=== PATIENT | male | born 1945 ===

== ENCOUNTER 2017-12-19 13:02 | Inpatient (IN) | payer MEDICARE ==
[2017-12-19 13:02] VITALS: PULSE 111
[2017-12-19 14:07] LABS: BASO % 0.8 % (0.0-2.0); EOS # 0.2 K/uL (0.0-0.7); EOS % 3.7 % (0.0-4.0); HEMOGLOBIN 13.2 g/dL (12.0-18.0); LYMPH # 1.8 K/uL (1.0-4.3); LYMPH % 36.1 % (20.0-40.0); MEAN CELL VOLUME 80.6 fl (80.0-94.0); MEAN CORPUSCULAR HEMOGLOBIN 27.9 pg (27.0-31.0); MEAN CORPUSCULAR HGB CONC 34.6 g/dL (33.0-37.0); MEAN PLATELET VOLUME 9.1 fl (7.2-11.7); MONO # 0.3 K/uL (0.0-0.8); MONO % 6.3 % (0.0-10.0); NEUT # 2.7 K/uL (1.8-7.0); NEUT % 53.1 % (50.0-75.0); NRBC % 0.1 % (0.0-0.0); RBC 4.73 Mil/uL (4.40-5.90); RED CELL DISTRIBUTION WIDTH 14.4 % (11.5-14.5); WHITE BLOOD COUNT 5.1 K/uL (4.8-10.8)
[2017-12-19 14:14] LABS: BLOOD UREA NITROGEN 24 mg/dl (9-20); GFR AFRICAN-AMERICAN > 60; GFR NON-AFRICAN AMERICAN > 60
--- NOTE | 2017-12-19 14:14 | ED PDOC ---
HPI: Chest Pain Time Seen by Provider: 12/19/17 13:11 Chief Complaint (Nursing): Chest Pain History Per: Patient History/Exam Limitations: no limitations Onset/Duration Of Symptoms: Days (4), Worse Since (this morning) Current Symptoms Are (Timing): Still Present Modifying Factors: None Exacerbating Factors: None Alleviating Factors: None Additional Complaint(s): Rickey Zamudio is a 72 year old male, whose past medical history includes HTN, diabetes, CAD, CVA, DVT, and HLD, who presents to the emergency department complaining of constant non-radiating chest pain since 4 days ago. Patient reports she usually takes Aspirin, but has stopped in the last 3 days. Patient denies shortness of breath, headache, fever, chills cough, nausea, vomiting, diarrhea, diaphoresis, jaw pain, back pain, lower extremity pain/swelling, or other complaints. Past Medical History Reviewed: Historical Data, Nursing Documentation, Vital Signs Vital Signs: Last Vital Signs Temp 97.9 F 12/19/17 13:05 Pulse 108 H 12/19/17 18:09 Resp 16 12/19/17 17:51 BP 128/59 L 12/19/17 17:51 Pulse Ox 98 12/19/17 18:09 - Medical History PMH: CAD, Diabetes, Deep Vein Thrombosis, HTN, Hypercholesterolemia, Hyperlipidemia Denies: HIV, Chronic Kidney Disease - Surgical History Surgical History: Cholecystectomy Other surgeries: IVC filter - Family History Family History: States: Unknown Family Hx - Home Medications Home Medications: Ambulatory Orders Medication Instructions Recorded Carvedilol [Coreg] 12.5 mg PO BID 12/19/17 Gemfibrozil [Lopid] 600 mg PO HS 12/19/17 Insulin Glargine,Hum.rec.anlog 40 units SC HS 12/19/17 [Toujeo Solostar] Losartan/Hydrochlorothiazide 1 tab PO DAILY 12/19/17 [Losartan-Hctz 100-25 mg Tab] Simvastatin [Zocor] 20 mg PO DAILY 12/19/17 amLODIPine [Norvasc] 5 mg PO DAILY 12/19/17 metFORMIN [glucOPHAGE] 2 tab PO BID 12/19/17 - Allergies Allergies/Adverse Reactions: Allergies Allergy/AdvReac Type Severity Reaction Status Date / Time No Known Allergies Allergy Verified 11/29/16 21:09 TORRES Risk Score for UA/NSTEMI - TORRES Risk Score Age > 64: YES 3 or more CAD Risk Factors: YES Known CAD (Stenosis greater than 50%): YES Aspirin use in past 7 days: NO Severe Angina: YES EKG ST changes greater than 0.5mm: NO Positive Cardiac Marker: NO TORRES Score: 4 Risk %: 20% Wells Criteria for PE - Wells Criteria for Pulmonary Embolism Clinical Signs and Symptoms of DVT: No P.E is #1 Diagnosis, or Equally Likely: No Heart Rate >100: No Immobilization at least 3 days;Surgery previous 4 weeks: No Previous, objectively diagnosed PE or DVT: No Hemoptysis: No Malignancy w/treatment within 6 months, or palliative: No Total Score: 0 Review of Systems ROS Statement: Except As Marked, All Systems Reviewed And Found Negative Constitutional: Negative for: Fever ENT: Negative for: Throat Swelling Cardiovascular: Positive for: Chest Pain Respiratory: Negative for: Cough, Shortness of Breath Gastrointestinal: Negative for: Vomiting, Abdominal Pain Genitourinary Male: Negative for: Dysuria Musculoskeletal: Negative for: Neck Pain Skin: Negative for: Rash Neurological: Negative for: Headache Physical Exam - Reviewed Nursing Documentation Reviewed: Yes Vital Signs Reviewed: Yes - Physical Exam Appears: Positive for: Non-toxic, No Acute Distress Head Exam: Positive for: ATRAUMATIC, NORMAL INSPECTION, NORMOCEPHALIC Skin: Positive for: Normal Color, Warm, DRY Eye Exam: Positive for: EOMI, Normal appearance, PERRL Neck: Positive for: Normal, Painless ROM, Supple Cardiovascular/Chest: Positive for: Regular Rate, Rhythm. Negative for: Chest Non Tender (left sided chest tenderness), Murmur Respiratory: Positive for: Normal Breath Sounds. Negative for: Crackles, Rales , Rhonchi, Wheezing Gastrointestinal/Abdominal: Positive for: Normal Exam, Bowel Sounds, Soft. Negative for: Tenderness Neurologic/Psych: Positive for: Alert, comfort station attendant II-XII (intact), Oriented. Negative for: Motor/Sensory Deficits - Laboratory Results Result Diagrams: 12/19/17 13:58 12/19/17 13:58 - ECG ECG: Positive for: Interpreted By Me, Viewed By Me ECG Rhythm: Positive for: Normal QRS, Normal ST Segment, Sinus Tachycardia. Negative for: ST/T Changes Rate: 108 O2 Sat by Pulse Oximetry: 98 (room air) Pulse Ox Interpretation: Normal - Radiology X-Ray: Interpreted by Me, Viewed By Me X-Ray Interpretation: No Acute Disease Medical Decision Making Medical Decision Making: Impression: 72 y/o male with left sided chest wall tenderness c/o chest pain since 4 days Differential Diagnosis included but are not limited to: ACS vs. pulmonary embolism vs. musculoskeletal vs. arthritis Plan: -- EKG -- CXR -- Labs -- Nitroglycerin and Aspirin -- Reassess and disposition Progress Notes: PROCEDURE: CT Angiography Chest, Abdomen and Pelvis with and without intravenous contrast HISTORY: left chest pain COMPARISON: Abdomen pelvis CT without contrast 09/26/2012. TECHNIQUE: Contiguous axial images of the chest, abdomen and pelvis were obtained in the phase of aortic enhancement. A noncontrast enhanced CT of the chest was also obtained to evaluate for possible intramural thrombus. Coronal and sagittal reformats were generated. IV dose administered: Visipaque 320, 90 cc. Radiation dose: Total exam DLP = 1534.48 mGy-cm. This CT exam was performed using one or more of the following dose reduction techniques: Automated exposure control, adjustment of the mA and/or kV according to patient size, and/or use of iterative reconstruction technique. FINDINGS: CT ANGIOGRAPHY OF THE CHEST WITH & WITHOUT CONTRAST: AORTA (CHEST AND ABDOMEN): The thoracic and abdominal aorta are are remarkable for atherosclerosis but without aneurysm, dissection or rupture. No intramural thrombus identified in the thoracic aorta on the non-contrast CT of the chest. The celiac axis, superior mesenteric artery, inferior mesenteric artery and the renal arteries are widely patent. The pelvic arteries are atherosclerotic but patent and otherwise unremarkable. LUNGS: No nodule, mass or consolidation. Central airways appear clear MEDIASTINUM: Extensive coronary artery atherosclerosis is appreciated with normal size heart. There is no significant lymphadenopathy. LYMPH NODES: As above. PLEURA: Unremarkable. No pneumothorax. No pleural fluid. BONES: Unremarkable. OTHER FINDINGS: None. CT ANGIOGRAPHY OF THE ABDOMEN AND PELVIS WITH CONTRAST: Evaluation of the abdomen visualize pelvic anatomy is compromised by the lack of arterial venous phase enhancement imaging and also lack of oral contrast and evaluation of the gastrointestinal tract. LIVER: Unremarkable. No gross lesion or ductal dilatation. GALLBLADDER AND BILE DUCTS: Interval cholecystectomy evident. PANCREAS: Unremarkable. No gross lesion or ductal dilatation. SPLEEN: Unremarkable. ADRENALS: Unremarkable. No mass. KIDNEYS AND URETERS: Unremarkable. No hydronephrosis. No solid mass. VASCULATURE: Unremarkable. No aortic aneurysm. STOMACH AND BOWEL: The stomach is mildly distended with retained food and air. Retained fecal material appears relatively prominent throughout the colon without obvious constipation type pattern. . No obstruction. No gross mural thickening. APPENDIX: Normal appendix. PERITONEUM: Unremarkable. No free fluid. No free air. LYMPH NODES: Unremarkable. No enlarged lymph nodes. BLADDER: Upper bladder is unremarkable. The exam terminates at the mid pelvis. REPRODUCTIVE: Not visualized. BONES: Unremarkable as imaged. OTHER FINDINGS: None. IMPRESSION: No evidence aortic dissection or aneurysm. No definite acute chest abdomen findings as well as the upper pelvis. Limited additional details as discussed above including prior cholecystectomy and extensive coronary artery atherosclerosis. Scribe Attestation: Documented by Ana M Hugginsibe Attestation: All medical record entries made by the Scribe were at my direction and personally dictated by me. I have reviewed the chart and agree that the record accurately reflects my personal performance of the history, physical exam, medical decision making, and the department course for this patient. I have also personally directed, reviewed, and agree with the discharge instructions and disposition. Disposition - Clinical Impression Clinical Impression: Chest pain - Patient ED Disposition Is Patient to be Admitted: Yes Discussed With : Dax Mcfarland Doctor Will See Patient In The: Hospital Counseled Patient/Family Regarding: Studies Performed, Diagnosis - Disposition Disposition Time: 16:30 Condition: FAIR - Pt Status Changed To: Hospital Disposition Of: Inpatient - Admit Certification Admit to Inpatient:: After my assessment, the patient will require hospitalization for at least two midnights. This is because of the severity of symptoms shown, intensity of services needed, and/or the medical risk in this patient being treated as an outpatient. - POA Present On Arrival: Poor Glycemic Control
[2017-12-19 14:15] LABS: CALCIUM 9.5 mg/dL (8.4-10.2); LIPASE 373 U/L (23-300)
[2017-12-19 14:23] LABS: INR 0.9 (0.9-1.2); PARTIAL THROMBOPLASTIN TIME 26.3 Seconds (25.6-37.1); PROTHROMBIN TIME 10.2 Seconds (9.8-13.1)
[2017-12-19] MEDS ORDERED: Iodixanol 320 MG/ML 100 ML BOTTLE IV ONE (15:43)
[2017-12-19] MEDS ORDERED: Sodium Chloride 0.9% 100 ML ONE (15:43)
[2017-12-19] MEDS ORDERED: Insulin Regular 100 units/ml IV STA (16:21)
[2017-12-19] MEDS ORDERED: Morphine 4 MG/ML VIAL IVP ONE (16:23)
[2017-12-19] MEDS ORDERED: Insulin Regular 100 units/ml ONE (16:35)
[2017-12-19] MEDS ORDERED: Morphine 4 MG/ML VIAL ONE (16:35)
--- NOTE | 2017-12-19 16:42 | CT ---
PROCEDURE: CT Angiography Chest, Abdomen and Pelvis with and without intravenous contrast HISTORY: left chest pain COMPARISON: Abdomen pelvis CT without contrast 09/26/2012. TECHNIQUE: Contiguous axial images of the chest, abdomen and pelvis were obtained in the phase of aortic enhancement. A noncontrast enhanced CT of the chest was also obtained to evaluate for possible intramural thrombus. Coronal and sagittal reformats were generated. IV dose administered: Visipaque 320, 90 cc. Radiation dose: Total exam DLP = 1534.48 mGy-cm. This CT exam was performed using one or more of the following dose reduction techniques: Automated exposure control, adjustment of the mA and/or kV according to patient size, and/or use of iterative reconstruction technique. FINDINGS: CT ANGIOGRAPHY OF THE CHEST WITH & WITHOUT CONTRAST: AORTA (CHEST AND ABDOMEN): The thoracic and abdominal aorta are are remarkable for atherosclerosis but without aneurysm, dissection or rupture. No intramural thrombus identified in the thoracic aorta on the non-contrast CT of the chest. The celiac axis, superior mesenteric artery, inferior mesenteric artery and the renal arteries are widely patent. The pelvic arteries are atherosclerotic but patent and otherwise unremarkable. LUNGS: No nodule, mass or consolidation. Central airways appear clear MEDIASTINUM: Extensive coronary artery atherosclerosis is appreciated with normal size heart. There is no significant lymphadenopathy. LYMPH NODES: As above. PLEURA: Unremarkable. No pneumothorax. No pleural fluid. BONES: Unremarkable. OTHER FINDINGS: None. CT ANGIOGRAPHY OF THE ABDOMEN AND PELVIS WITH CONTRAST: Evaluation of the abdomen visualize pelvic anatomy is compromised by the lack of arterial venous phase enhancement imaging and also lack of oral contrast and evaluation of the gastrointestinal tract. LIVER: Unremarkable. No gross lesion or ductal dilatation. GALLBLADDER AND BILE DUCTS: Interval cholecystectomy evident. PANCREAS: Unremarkable. No gross lesion or ductal dilatation. SPLEEN: Unremarkable. ADRENALS: Unremarkable. No mass. KIDNEYS AND URETERS: Unremarkable. No hydronephrosis. No solid mass. VASCULATURE: Unremarkable. No aortic aneurysm. STOMACH AND BOWEL: The stomach is mildly distended with retained food and air. Retained fecal material appears relatively prominent throughout the colon without obvious constipation type pattern. . No obstruction. No gross mural thickening. APPENDIX: Normal appendix. PERITONEUM: Unremarkable. No free fluid. No free air. LYMPH NODES: Unremarkable. No enlarged lymph nodes. BLADDER: Upper bladder is unremarkable. The exam terminates at the mid pelvis. REPRODUCTIVE: Not visualized. BONES: Unremarkable as imaged. OTHER FINDINGS: None. IMPRESSION: No evidence aortic dissection or aneurysm. No definite acute chest abdomen findings as well as the upper pelvis. Limited additional details as discussed above including prior cholecystectomy and extensive coronary artery atherosclerosis.
--- NOTE | 2017-12-19 18:02 | RAD ---
PROCEDURE: CHEST RADIOGRAPH, 1 VIEW HISTORY: chest pain COMPARISON: Portable chest 11/29/2016. FINDINGS: LUNGS: No acute cardiopulmonary disease appreciated. PLEURA: No pneumothorax or pleural fluid seen. CARDIOVASCULAR: Normal. OSSEOUS STRUCTURES: No significant abnormalities. VISUALIZED UPPER ABDOMEN: Normal. OTHER FINDINGS: None. IMPRESSION: No interval acute cardiopulmonary disease appreciated.
--- NOTE | 2017-12-19 21:06 | CP.PCM.HP ---
History of Present Illness - History of Present Illness History of Present Illness: CC: Chest Pain History of Present Illness: A 72 year old male, whose past medical history includes HTN, diabetes, CAD, CVA , DVT, and HLD, who presents to the emergency department complaining of constant non-radiating chest pain since 4 days ago. Patient reports he usually takes Aspirin, but has stopped in the last 3 days. Patient denies shortness of breath, headache, fever, chills cough, nausea, vomiting, diarrhea, diaphoresis, jaw pain, back pain, lower extremity pain/swelling, or other complaints. Present on Admission - Present on Admission Any Indicators Present on Admission: No Review of Systems - Review of Systems All systems: reviewed and no additional remarkable complaints except - Cardiovascular Cardiovascular: As Per HPI Past Patient History - Past Medical History & Family History Past Medical History?: Yes Past Family History: Reviewed and not pertinent - Past Social History Smoking Status: Former Smoker Cigar Use: No Alcohol: None Drugs: Denies - CARDIAC Hx Cardiac Disorders: Yes Hx Hypercholesterolemia: Yes Hx Hypertension: Yes - PULMONARY Hx Respiratory Disorders: No - NEUROLOGICAL Hx Neurological Disorder: Yes Hx Transient Ischemic Attacks (TIA): Yes - HEENT Hx HEENT Problems: No - RENAL Hx Chronic Kidney Disease: No - ENDOCRINE/METABOLIC Hx Endocrine Disorders: Yes Hx Diabetes Mellitus Type 2: Yes - HEMATOLOGICAL/ONCOLOGICAL Hx Blood Disorders: No Hx Human Immunodeficiency Virus (HIV): No - INTEGUMENTARY Hx Dermatological Problems: Yes Other/Comment: Discoloration left lower leg - MUSCULOSKELETAL/RHEUMATOLOGICAL Hx Musculoskeletal Disorders: No Hx Falls: No - GASTROINTESTINAL Hx Gastrointestinal Disorders: No - GENITOURINARY/GYNECOLOGICAL Hx Genitourinary Disorders: No - PSYCHIATRIC Hx Psychophysiologic Disorder: No Hx Substance Use: No - SURGICAL HISTORY Hx Surgeries: Yes Hx Cholecystectomy: Yes - ANESTHESIA Hx Anesthesia: Yes Hx Anesthesia Reactions: No Hx Malignant Hyperthermia: No Has any member of the family had a problem w/ anesthesia?: No Meds Allergies/Adverse Reactions: Allergies Allergy/AdvReac Type Severity Reaction Status Date / Time No Known Allergies Allergy Verified 11/29/16 21:09 Physical Exam - Constitutional Appears: Well, No Acute Distress - Head Exam Head Exam: ATRAUMATIC, NORMAL INSPECTION, NORMOCEPHALIC - Eye Exam Eye Exam: EOMI, Normal appearance, PERRL Pupil Exam: NORMAL ACCOMODATION, PERRL - ENT Exam ENT Exam: Mucous Membranes Moist, Normal Exam - Neck Exam Neck exam: Positive for: Normal Inspection - Respiratory Exam Respiratory Exam: Clear to Auscultation Bilateral, NORMAL BREATHING PATTERN - Cardiovascular Exam Cardiovascular Exam: REGULAR RHYTHM - GI/Abdominal Exam GI & Abdominal Exam: Normal Bowel Sounds, Soft. absent: Tenderness - Rectal Exam Rectal Exam: NORMAL INSPECTION - Exam Exam: Circumcision, NORMAL INSPECTION External exam: NORMAL EXTERNAL EXAM Speculum exam: NORMAL SPECULUM EXAM Bimanual exam: NORMAL BIMANUAL EXAM - Extremities Exam Extremities exam: Positive for: normal inspection - Back Exam Back exam: NORMAL INSPECTION - Neurological Exam Neurological exam: Alert, CN II-XII Intact, Normal Gait, Oriented x3, Reflexes Normal - Psychiatric Exam Psychiatric exam: Normal Affect, Normal Mood - Skin Skin Exam: Dry, Intact, Normal Color, Warm Results - Vital Signs Recent Vital Signs: Last Vital Signs Temp 97.7 F 12/19/17 20:10 Pulse 88 12/19/17 20:37 Resp 18 12/19/17 20:37 BP 127/68 12/19/17 20:10 Pulse Ox 95 12/19/17 20:10 - Labs Result Diagrams: 12/19/17 13:58 12/19/17 13:58 Labs: Laboratory Results - last 24 hr 12/19/17 12/19/17 12/19/17 13:19 13:58 13:58 WBC 5.1 RBC 4.73 Hgb 13.2 Hct 38.2 MCV 80.6 MCH 27.9 MCHC 34.6 RDW 14.4 Plt Count 151 MPV 9.1 Neut % (Auto) 53.1 Lymph % (Auto) 36.1 [place] % (Auto) 6.3 Eos % (Auto) 3.7 Baso % (Auto) 0.8 Neut # (Auto) 2.7 Lymph # (Auto) 1.8 [place] # (Auto) 0.3 Eos # (Auto) 0.2 Baso # (Auto) 0.0 PT INR APTT D-Dimer, Quantitative Sodium 138 Potassium 4.3 Chloride 101 Carbon Dioxide 23 Anion Gap 18 BUN 24 H Creatinine 0.9 Est GFR ( Amer) > 60 Est GFR (Non-Af Amer) > 60 POC Glucose (mg/dL) 386 H Random Glucose 382 H Calcium 9.5 Troponin I 0.0340 Lipase 373 H 12/19/17 12/19/17 13:58 17:51 WBC RBC Hgb Hct MCV MCH MCHC RDW Plt Count MPV Neut % (Auto) Lymph % (Auto) [place] % (Auto) Eos % (Auto) Baso % (Auto) Neut # (Auto) Lymph # (Auto) [place] # (Auto) Eos # (Auto) Baso # (Auto) PT 10.2 INR 0.9 APTT 26.3 D-Dimer, Quantitative 170 Sodium Potassium Chloride Carbon Dioxide Anion Gap BUN Creatinine Est GFR ( Amer) Est GFR (Non-Af Amer) POC Glucose (mg/dL) 242 H Random Glucose Calcium Troponin I Lipase Assessment & Plan (1) NSTEMI (non-ST elevated myocardial infarction) Status: Acute Priority: High (2) AF (paroxysmal atrial fibrillation) Status: Chronic Priority: Low (3) CVA, old, cognitive deficits Status: Chronic Priority: Low
[2017-12-20] MEDS: Insulin Regular 100 units/ml SC SCH ×4 (06:46→21:41)
--- NOTE | 2017-12-20 10:27 | CP.PCM.CON ---
History of Present Illness - History of Present Illness History of Present Illness: 72 year old male, presents to the emergency department complaining of constant non-radiating chest pain since 4 days ago. pain is described as tightening sensation no real relation to exercise no diaphoresis/palpitations/dizziness Troponin: 4.63; 4.39 EKG: NSR ; no acute changes PMH: Hypertension DM CAD DVT Past Patient History - Past Medical History & Family History Past Medical History?: Yes Past Family History: Reviewed and not pertinent - Past Social History Smoking Status: Former Smoker Cigar Use: No Alcohol: None Drugs: Denies - CARDIAC Hx Cardiac Disorders: Yes Hx Hypercholesterolemia: Yes Hx Hypertension: Yes - PULMONARY Hx Respiratory Disorders: No - NEUROLOGICAL Hx Neurological Disorder: Yes Hx Transient Ischemic Attacks (TIA): Yes - HEENT Hx HEENT Problems: No - RENAL Hx Chronic Kidney Disease: No - ENDOCRINE/METABOLIC Hx Endocrine Disorders: Yes Hx Diabetes Mellitus Type 2: Yes - HEMATOLOGICAL/ONCOLOGICAL Hx Blood Disorders: No Hx Human Immunodeficiency Virus (HIV): No - INTEGUMENTARY Hx Dermatological Problems: Yes Other/Comment: Discoloration left lower leg - MUSCULOSKELETAL/RHEUMATOLOGICAL Hx Musculoskeletal Disorders: No Hx Falls: No - GASTROINTESTINAL Hx Gastrointestinal Disorders: No - GENITOURINARY/GYNECOLOGICAL Hx Genitourinary Disorders: No - PSYCHIATRIC Hx Psychophysiologic Disorder: No Hx Substance Use: No - SURGICAL HISTORY Hx Surgeries: Yes Hx Cholecystectomy: Yes - ANESTHESIA Hx Anesthesia: Yes Hx Anesthesia Reactions: No Hx Malignant Hyperthermia: No Has any member of the family had a problem w/ anesthesia?: No Meds Allergies/Adverse Reactions: Allergies Allergy/AdvReac Type Severity Reaction Status Date / Time No Known Allergies Allergy Verified 11/29/16 21:09 - Medications Medications: Current Medications Amlodipine Besylate (Norvasc) 5 mg PO DAILY [facility] Atorvastatin Calcium (Lipitor) 10 mg PO DAILY [facility] Carvedilol (Coreg) 12.5 mg PO BID [facility] Enoxaparin Sodium (Lovenox) 40 mg SC DAILY [facility] PRN Reason: Protocol Gemfibrozil (Lopid) 600 mg PO HS [facility] Hydrochlorothiazide (Hydrodiuril) 25 mg PO DAILY [facility] Insulin Detemir (Levemir) 40 units SC HS [facility] Insulin Human Regular (Humulin R) 0 units SC ACHS [facility] PRN Reason: Protocol Last Admin: 12/20/17 06:46 Dose: Not Given Losartan Potassium (Cozaar) 100 mg PO DAILY [facility] Metformin HCl (Glucophage) 500 mg PO BIDWM [facility] Results - Vital Signs Recent Vital Signs: Last Vital Signs Temp 97.6 F 12/20/17 08:38 Pulse 66 12/20/17 08:38 Resp 18 12/20/17 08:38 BP 119/70 12/20/17 08:38 Pulse Ox 97 12/20/17 08:38 - Labs Result Diagrams: 12/19/17 13:58 12/19/17 13:58 Labs: Laboratory Results - last 24 hr 12/19/17 12/19/17 12/19/17 13:19 13:58 13:58 WBC 5.1 RBC 4.73 Hgb 13.2 Hct 38.2 MCV 80.6 MCH 27.9 MCHC 34.6 RDW 14.4 Plt Count 151 MPV 9.1 Neut % (Auto) 53.1 Lymph % (Auto) 36.1 [place] % (Auto) 6.3 Eos % (Auto) 3.7 Baso % (Auto) 0.8 Neut # (Auto) 2.7 Lymph # (Auto) 1.8 [place] # (Auto) 0.3 Eos # (Auto) 0.2 Baso # (Auto) 0.0 PT INR APTT D-Dimer, Quantitative Sodium 138 Potassium 4.3 Chloride 101 Carbon Dioxide 23 Anion Gap 18 BUN 24 H Creatinine 0.9 Est GFR ( Amer) > 60 Est GFR (Non-Af Amer) > 60 POC Glucose (mg/dL) 386 H Random Glucose 382 H Calcium 9.5 Troponin I 0.0340 Lipase 373 H 12/19/17 12/19/17 12/20/17 13:58 17:51 05:00 WBC RBC Hgb Hct MCV MCH MCHC RDW Plt Count MPV Neut % (Auto) Lymph % (Auto) [place] % (Auto) Eos % (Auto) Baso % (Auto) Neut # (Auto) Lymph # (Auto) [place] # (Auto) Eos # (Auto) Baso # (Auto) PT 10.2 INR 0.9 APTT 26.3 D-Dimer, Quantitative 170 Sodium Potassium Chloride Carbon Dioxide Anion Gap BUN Creatinine Est GFR ( Amer) Est GFR (Non-Af Amer) POC Glucose (mg/dL) 242 H Random Glucose Calcium Troponin I 4.6300 H* Lipase 12/20/17 06:30 WBC RBC Hgb Hct MCV MCH MCHC RDW Plt Count MPV Neut % (Auto) Lymph % (Auto) [place] % (Auto) Eos % (Auto) Baso % (Auto) Neut # (Auto) Lymph # (Auto) [place] # (Auto) Eos # (Auto) Baso # (Auto) PT INR APTT D-Dimer, Quantitative Sodium Potassium Chloride Carbon Dioxide Anion Gap BUN Creatinine Est GFR ( Amer) Est GFR (Non-Af Amer) POC Glucose (mg/dL) Random Glucose Calcium Troponin I 4.3900 H* Lipase Assessment & Plan (1) NSTEMI (non-ST elevated myocardial infarction) Assessment and Plan: Suggested to the patient that he needs cardiac catheterization. He is agreeable. I have contacted Dr. Kenisha Iqbal Status: Acute
[2017-12-20] MEDS: Enoxaparin 40 mg Syringe SC SCH (11:05)
--- NOTE | 2017-12-20 13:26 | CP.PCM.PN ---
Subjective - Date & Time of Evaluation Date of Evaluation: 12/20/17 Time of Evaluation: 13:15 Objective - Vital Signs/Intake and Output Vital Signs (last 24 hours): Temp Pulse Resp BP Pulse Ox 97.6 F 63 18 119/70 97 12/20/17 08:38 12/20/17 11:07 12/20/17 08:38 12/20/17 11:07 12/20/17 08:38 - Medications Medications: Current Medications Amlodipine Besylate (Norvasc) 5 mg PO DAILY [facility] Last Admin: 12/20/17 11:07 Dose: 5 mg Atorvastatin Calcium (Lipitor) 10 mg PO DAILY [facility] Last Admin: 12/20/17 11:07 Dose: 10 mg Carvedilol (Coreg) 12.5 mg PO BID [facility] Last Admin: 12/20/17 11:06 Dose: 12.5 mg Enoxaparin Sodium (Lovenox) 40 mg SC DAILY [facility] PRN Reason: Protocol Last Admin: 12/20/17 11:05 Dose: 40 mg Gemfibrozil (Lopid) 600 mg PO HS [facility] Hydrochlorothiazide (Hydrodiuril) 25 mg PO DAILY [facility] Last Admin: 12/20/17 11:06 Dose: 25 mg Insulin Detemir (Levemir) 40 units SC HS [facility] Insulin Human Regular (Humulin R) 0 units SC ACHS [facility] PRN Reason: Protocol Last Admin: 12/20/17 13:09 Dose: 3 u Losartan Potassium (Cozaar) 100 mg PO DAILY [facility] Last Admin: 12/20/17 11:06 Dose: 100 mg Metformin HCl (Glucophage) 500 mg PO BIDWM [facility] Last Admin: 12/20/17 11:05 Dose: 500 mg - Labs Labs: 12/19/17 13:58 12/19/17 13:58 PT 10.2 Seconds (9.8-13.1) 12/19/17 13:58 INR 0.9 (0.9-1.2) 12/19/17 13:58 APTT 26.3 Seconds (25.6-37.1) 12/19/17 13:58
--- NOTE | 2017-12-20 14:55 | CARD ---
APPROVED REPORT EKG Measurement Heart [id number] <Conclusion> Sinus tachycardia Nonspecific ST abnormality Abnormal ECG
[2017-12-20 20:08] VITALS: RESP 18
[2017-12-20] MEDS ORDERED: Insulin Detemir 100 Units/ml Inj SC SCH (22:00)
[2017-12-21] MEDS: Insulin Regular 100 units/ml SC SCH (06:40)
[2017-12-21 07:48] VITALS: BP 124/76; PULSE 78; TEMP 97.7; O2SAT 100
[2017-12-21] MEDS: Enoxaparin 40 mg Syringe SC SCH (08:21)
--- NOTE | 2017-12-21 19:26 | CP.PCM.DIS ---
Provider - Provider Date of Admission: 12/19/17 16:50 Attending physician: Dax Mcfarland MD Time Spent in preparation of Discharge (in minutes): 25 Hospital Course - Lab Results Lab Results: Most Recent Lab Values WBC 5.1 K/uL (4.8-10.8) 12/19/17 13:58 RBC 4.73 Mil/uL (4.40-5.90) 12/19/17 13:58 Hgb 13.2 g/dL (12.0-18.0) 12/19/17 13:58 Hct 38.2 % (35.0-51.0) 12/19/17 13:58 MCV 80.6 fl (80.0-94.0) 12/19/17 13:58 MCH 27.9 pg (27.0-31.0) 12/19/17 13:58 MCHC 34.6 g/dL (33.0-37.0) 12/19/17 13:58 RDW 14.4 % (11.5-14.5) 12/19/17 13:58 Plt Count 151 K/uL (130-400) 12/19/17 13:58 MPV 9.1 fl (7.2-11.7) 12/19/17 13:58 Neut % (Auto) 53.1 % (50.0-75.0) 12/19/17 13:58 Lymph % (Auto) 36.1 % (20.0-40.0) 12/19/17 13:58 [place] % (Auto) 6.3 % (0.0-10.0) 12/19/17 13:58 Eos % (Auto) 3.7 % (0.0-4.0) 12/19/17 13:58 Baso % (Auto) 0.8 % (0.0-2.0) 12/19/17 13:58 Neut # (Auto) 2.7 K/uL (1.8-7.0) 12/19/17 13:58 Lymph # (Auto) 1.8 K/uL (1.0-4.3) 12/19/17 13:58 [place] # (Auto) 0.3 K/uL (0.0-0.8) 12/19/17 13:58 Eos # (Auto) 0.2 K/uL (0.0-0.7) 12/19/17 13:58 Baso # (Auto) 0.0 K/uL (0.0-0.2) 12/19/17 13:58 PT 10.2 Seconds (9.8-13.1) 12/19/17 13:58 INR 0.9 (0.9-1.2) 12/19/17 13:58 APTT 26.3 Seconds (25.6-37.1) 12/19/17 13:58 D-Dimer, Quantitative 170 ng/mlDDU (0-230) 12/19/17 13:58 Sodium 138 mmol/l (132-148) 12/19/17 13:58 Potassium 4.3 MMOL/L (3.6-5.0) 12/19/17 13:58 Chloride 101 mmol/L (98-107) 12/19/17 13:58 Carbon Dioxide 23 mmol/L (22-30) 12/19/17 13:58 Anion Gap 18 (10-20) 12/19/17 13:58 BUN 24 mg/dl (9-20) H 12/19/17 13:58 Creatinine 0.9 mg/dl (0.8-1.5) 12/19/17 13:58 Est GFR ( Amer) > 60 12/19/17 13:58 Est GFR (Non-Af Amer) > 60 12/19/17 13:58 POC Glucose (mg/dL) 193 mg/dL (65-110) H 12/21/17 05:56 Random Glucose 382 mg/dL (75-110) H 12/19/17 13:58 Calcium 9.5 mg/dL (8.4-10.2) 12/19/17 13:58 Troponin I 2.7100 ng/mL (0.00-0.120) H* 12/20/17 12:00 Lipase 373 U/L (23-300) H 12/19/17 13:58 Discharge Exam - Head Exam Head Exam: ATRAUMATIC, NORMAL INSPECTION, NORMOCEPHALIC Discharge Plan - Follow Up Plan Condition: FAIR Disposition: Transfer [facility] INPATIENT
--- NOTE | 2017-12-21 21:22 | CARD ---
APPROVED REPORT EKG Measurement Heart [id number] <Conclusion> Sinus rhythm with 1st degree AV block Otherwise normal ECG
--- NOTE | 2017-12-21 21:23 | CARD ---
APPROVED REPORT EKG Measurement Heart [id number] <Conclusion> Sinus rhythm with 1st degree AV block Otherwise normal ECG
== END 2017-12-21 08:30 | disposition short-term general hospital (02) | DRG 282 ==
LOC: H.ER 13:02 → H.ERHOLD 16:50 → H.TEL 18:41
PROVIDERS: ADMIT Internal Medicine; ATTEND Internal Medicine
DX: I21.4 Non-ST elevation (NSTEMI) myocardial infarction (principal); I48.0 Paroxysmal atrial fibrillation; E11.9 Type 2 diabetes mellitus without complications; I10 Essential (primary) hypertension; I25.10 Atherosclerotic heart disease of native coronary artery without angina pectoris; Z86.718 Personal history of other venous thrombosis and embolism; E78.5 Hyperlipidemia, unspecified; E78.00 Pure hypercholesterolemia, unspecified; Z87.891 Personal history of nicotine dependence; I69.319 Unspecified symptoms and signs involving cognitive functions following cerebral infarction

== ENCOUNTER 2018-04-19 09:26 | Inpatient (IN) | payer MEDICARE ==
[2018-04-19 09:26] VITALS: PULSE 111; BMI 26.6
[2018-04-19] MEDS ORDERED: Sodium Chloride 0.9% 1,000 ML IV STA (09:53)
--- NOTE | 2018-04-19 10:01 | ED PDOC ---
Lower Extremity Pain/Injury Time Seen by Provider: 04/19/18 09:40 Chief Complaint (Nursing): Lower Extremity Problem/Injury Chief Complaint (Provider): Lower Extremity Problem/Injury History Per: Patient History/Exam Limitations: no limitations Onset/Duration Of Symptoms: Days (x2) Current Symptoms Are (Timing): Still Present Additional Complaint(s): 72 year old male with medical history of diabetes and CAD s/p CABG, presents to the emergency department with a complaint of right-sided foot pain associated with redness and swelling ongoing since last night. He also reports a fever ( Tmax: 102.8 degrees) but denies any chest pain, shortness of breath, foot injuries, calf pain or swelling. PMD: none provided Past Medical History Reviewed: Historical Data, Nursing Documentation, Vital Signs Vital Signs: Last Vital Signs Temp 98.4 F 04/19/18 09:30 Pulse 86 04/19/18 09:30 Resp 17 04/19/18 09:30 BP 131/75 04/19/18 09:30 Pulse Ox 96 04/19/18 09:30 - Medical History PMH: Arthritis, CAD, Diabetes, Deep Vein Thrombosis, HTN, Hypercholesterolemia, Hyperlipidemia, TIA Denies: HIV, Chronic Kidney Disease - Surgical History Surgical History: CABG, Cholecystectomy - Family History Family History: States: Unknown Family Hx - Home Medications Home Medications: Ambulatory Orders Medication Instructions Recorded Carvedilol [Coreg] 12.5 mg PO BID 12/19/17 Gemfibrozil [Lopid] 600 mg PO HS 12/19/17 Insulin Glargine,Hum.rec.anlog 40 units SC HS 12/19/17 [Toradhika Hanley] Losartan/Hydrochlorothiazide 1 tab PO DAILY 12/19/17 [Losartan-Hctz 100-25 mg Tab] Simvastatin [Zocor] 20 mg PO DAILY 12/19/17 amLODIPine [Norvasc] 5 mg PO DAILY 12/19/17 metFORMIN [glucOPHAGE] 2 tab PO BID 12/19/17 Aspirin Chewable 81 mg PO DAILY 01/03/18 Insulin Glargine, Recombina 100 units SC HS 01/03/18 [Lantus] Lipitor 80 mg PO DAILY 01/03/18 Metoprolol Tartrate 25 mg PO Q12H 01/03/18 Motrin Tab 400 mg PO Q6H PRN 01/03/18 Pepcid 20 mg PO BID 01/03/18 Plavix 75 mg PO DAILY 01/03/18 metFORMIN [glucOPHAGE] 500 mg PO BID 01/03/18 - Allergies Allergies/Adverse Reactions: Allergies Allergy/AdvReac Type Severity Reaction Status Date / Time No Known Allergies Allergy Verified 04/19/18 09:45 Review of Systems ROS Statement: Except As Marked, All Systems Reviewed And Found Negative Constitutional: Positive for: Fever Cardiovascular: Negative for: Chest Pain Respiratory: Negative for: Shortness of Breath Musculoskeletal: Positive for: Foot Pain (right-sided with redness and swelling) . Negative for: Other (bilateral calf pain or swelling) Physical Exam - Reviewed Nursing Documentation Reviewed: Yes Vital Signs Reviewed: Yes - Physical Exam Appears: Positive for: Non-toxic, No Acute Distress Cardiovascular/Chest: Positive for: Regular Rate, Rhythm Respiratory: Positive for: Normal Breath Sounds. Negative for: Respiratory Distress Gastrointestinal/Abdominal: Positive for: Normal Exam, Soft. Negative for: Tenderness Extremity: Positive for: Tenderness (right foot medial aspect with erythema), Swelling (right foot medial aspect). Negative for: Calf Tenderness (right- sided or swelling), Other (open wound or streaking of right foot) Neurologic/Psych: Positive for: Alert, Oriented. Negative for: Motor/Sensory Deficits - Laboratory Results Result Diagrams: 04/19/18 10:05 04/19/18 10:05 - ECG O2 Sat by Pulse Oximetry: 96 (RA) Pulse Ox Interpretation: Normal Medical Decision Making Medical Decision Making: Initial Impression: Foot pain and swelling; Fever Initial Plan: * VBG shock panel * CMP * Uric acid * Urine dipstick * CBC * NS 1,000ml IV per 100mls/hr * Toradol 30mg IVP * Blood culture * Vancomycin inj 250ml IVPB Scribe Attestation: Documented by Keyanna Freedman, acting as a scribe for Rodri Velázquez MD. Provider Scribe Attestation: All medical record entries made by the Scribe were at my direction and personally dictated by me. I have reviewed the chart and agree that the record accurately reflects my personal performance of the history, physical exam, medical decision making, and the department course for this patient. I have also personally directed, reviewed, and agree with the discharge instructions and disposition. Disposition - Clinical Impression Clinical Impression: Diabetes, Cellulitis - Patient ED Disposition Is Patient to be Admitted: Yes - Disposition Disposition Time: 14:17 Condition: FAIR Forms: [employer] ([place]ian) - Pt Status Changed To: Hospital Disposition Of: Observation - POA Present On Arrival: None
[2018-04-19 10:22] LABS: BASO % 0.5 % (0.0-2.0); EOS % 0.4 % (0.0-4.0); HEMOGLOBIN 12.5 g/dL (12.0-18.0); LYMPH # 1.3 K/uL (1.0-4.3); LYMPH % 13.9 % (20.0-40.0); MEAN CELL VOLUME 78.7 fl (80.0-94.0); MEAN CORPUSCULAR HEMOGLOBIN 26.1 pg (27.0-31.0); MEAN CORPUSCULAR HGB CONC 33.1 g/dL (33.0-37.0); MEAN PLATELET VOLUME 8.8 fl (7.2-11.7); MONO # 0.7 K/uL (0.0-0.8); MONO % 6.9 % (0.0-10.0); NEUT # 7.5 K/uL (1.8-7.0); NEUT % 78.3 % (50.0-75.0); NRBC % 0.1 % (0.0-0.0); RBC 4.78 Mil/uL (4.40-5.90); RED CELL DISTRIBUTION WIDTH 15.9 % (11.5-14.5); WHITE BLOOD COUNT 9.5 K/uL (4.8-10.8)
[2018-04-19 10:29] LABS: VENOUS BLOOD GAS BASE EXCESS 1.5 mmol/L (0.0-2.0); VENOUS BLOOD GAS PCO2 39 mmHg (40-60); VENOUS BLOOD GAS PO2 44 mm/Hg (30-55); VENOUS BLOOD PH 7.43 (7.32-7.43)
[2018-04-19 10:32] LABS: ALB/GLOB RATIO 1.1 (1.0-2.1); ALBUMIN 3.8 g/dL (3.5-5.0); ALT/SGPT 31 U/L (21-72); AST/SGOT 30 U/L (17-59); BLOOD UREA NITROGEN 19 mg/dl (9-20); GFR AFRICAN-AMERICAN > 60; GFR NON-AFRICAN AMERICAN > 60; URIC ACID 5.1 mg/Dl (3.5-8.5)
--- NOTE | 2018-04-19 14:31 | RAD ---
HISTORY: fever COMPARISON: Chest radiograph 12/19/2017. TECHNIQUE: Chest PA and lateral FINDINGS: LUNGS: No active pulmonary disease. Calcified granuloma again noted right apex. PLEURA: No significant pleural effusion identified. No pneumothorax apparent. CARDIOVASCULAR: Post CABG operative changes are reiterated at the sternum and left mediastinum. Normal cardiac size. No pulmonary vascular derangement. OSSEOUS STRUCTURES: No significant abnormalities. VISUALIZED UPPER ABDOMEN: Normal. OTHER FINDINGS: None. IMPRESSION: No interval acute cardiopulmonary disease appreciated.
[2018-04-19 14:32] LABS: VENOUS BLOOD GAS BASE EXCESS -1.1 mmol/L (0.0-2.0); VENOUS BLOOD GAS PCO2 38 mmHg (40-60); VENOUS BLOOD GAS PO2 61 mm/Hg (30-55)
--- NOTE | 2018-04-19 14:35 | RAD ---
PROCEDURE: Right Foot Radiographs. HISTORY: Pain COMPARISON: None. FINDINGS: BONES: An impacted fracture at the proximal metaphysis of the proximal phalanx right small digit was difficult to exclude. This is not a definite finding. Clinically correlate further. No destructive tive bony lesion identified. JOINTS: Degenerative cortical sclerosis and joint space narrowing seen throughout the interphalangeal joints diffusely as well as the 1st metatarsophalangeal joint. Lesser similar changes are present throughout the remainder of the right foot. SOFT TISSUES: Normal. OTHER FINDINGS: None. IMPRESSION: Questionable impacted fracture proximal metaphysis proximal phalanx right small digit. No additional potential fracture identified. Mild degenerative joint disease noted as per above. No destructive bony lesion appreciable.
[2018-04-19] MEDS ORDERED: Insulin Regular 100 units/ml SC STA (14:43)
[2018-04-19] MEDS ORDERED: Insulin Regular 100 units/ml ONE (15:37)
--- NOTE | 2018-04-19 18:20 | CP.PCM.PN ---
Subjective - Date & Time of Evaluation Date of Evaluation: 04/19/18 Time of Evaluation: 18:18 - Subjective Subjective: I D NOTE PATIENT EXAMINED ,CHART REVIEWED ANTIBIOTICS ORDERED FULLCONSULT DICTATED Objective - Vital Signs/Intake and Output Vital Signs (last 24 hours): Temp Pulse Resp BP Pulse Ox 98.2 F 90 18 161/76 H 98 04/19/18 16:50 04/19/18 17:31 04/19/18 17:31 04/19/18 16:50 04/19/18 16:50 - Medications Medications: Current Medications Aspirin (Ecotrin) 81 mg PO DAILY JOSE A Atorvastatin Calcium (Lipitor) 40 mg PO HS JOSE A Clopidogrel Bisulfate (Plavix) 75 mg PO DAILY JOSE A Sodium Chloride (Sodium Chloride 0.9%) 1,000 mls @ 100 mls/hr IV .Q10H STA Stop: 04/19/18 19:52 Last Admin: 04/19/18 10:22 Dose: 100 mls/hr Vancomycin HCl 1 gm/ Sodium (Chloride) 250 mls @ 166.667 mls/hr IVPB Q12 JOSE A PRN Reason: Protocol Ceftriaxone Sodium 1 gm/ (Sodium Chloride) 100 mls @ 100 mls/hr IVPB DAILY JOSE A PRN Reason: Protocol Insulin Human Regular (Humulin R) 0 units SC ACHS JOSE A PRN Reason: Protocol Metformin HCl (Glucophage) 500 mg PO BID JOSE A Metoprolol Tartrate (Lopressor) 25 mg PO Q12 JOSE A - Labs Labs: 04/19/18 10:05 04/19/18 10:05
[2018-04-19] MEDS: Insulin Regular 100 units/ml SC SCH (22:44)
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
[2018-04-20 06:34] LABS: HEMOGLOBIN 11.8 g/dL (12.0-18.0); MEAN CELL VOLUME 77.9 fl (80.0-94.0); MEAN CORPUSCULAR HEMOGLOBIN 26.1 pg (27.0-31.0); MEAN CORPUSCULAR HGB CONC 33.4 g/dL (33.0-37.0); RBC 4.54 Mil/uL (4.40-5.90); WHITE BLOOD COUNT 5.8 K/uL (4.8-10.8)
[2018-04-20 06:48] LABS: ALBUMIN 3.2 g/dL (3.5-5.0); ALT/SGPT 27 U/L (21-72); AST/SGOT 18 U/L (17-59); BLOOD UREA NITROGEN 21 mg/dl (9-20); CALCIUM 8.5 mg/dL (8.4-10.2); GFR AFRICAN-AMERICAN > 60; GFR NON-AFRICAN AMERICAN > 60; HDL CHOLESTEROL 18 MG/DL (30-70)
[2018-04-20 06:52] LABS: LDL CHOLESTEROL 54 mg/dL (0-129)
--- NOTE | 2018-04-20 08:30 | CP.PCM.HP ---
<Zaida Holland - Last Filed: 04/20/18 18:02> History of Present Illness - History of Present Illness History of Present Illness: 72 yr old M presented to ED with complaint of worsening pain/redness/swelling of right distal lower extremity x 2 days. Associated symptoms are fever Tmax 102.8 F, difficulty ambulating PMHx includes IDDM type 2, CAD s/p CABG 12/2017, bilateral LE DVT s/p IVC filter , HTN, HLD, TIA, unsteady gait at baseline-uses cane/walker to ambulate. PMD: Dr. Froilan Bailey? PMHx: IDDM type 2, CAD s/p CABG 12/2017, bilateral LE DVT s/p IVC filter, HTN, HLD, TIA, unsteady gait at baseline-uses cane/walker to ambulate SurgHx: CABG 12/2017, IVC filter 2012, cholecystectomy FMHx: noncontributory SocHx: former smoker (quit 30yrs ago), denies Etoh or drugs, lives with son Medications: see medication reconciliation Allergies: NKDA ED course: vital signs stable -CXR: No interval acute cardiopulmonary disease identified -right foot exray: questionable impacted fracture of proximal metaphysis -CBC wnl, VBG: lactate 2.2, glucose 362, rest wnl -ED treatment: Insulin 8 units SC once, toradol 30 mg IV once, vancomycin 1gm IVP once, NS IV 1L at 100 mls/hr Present on Admission - Present on Admission Any Indicators Present on Admission: Yes History of DVT/PE: Yes History of Uncontrolled Diabetes: Yes Urinary Catheter: No Decubitus Ulcer Present: No History Surgical Site Infection Following: None Review of Systems - Constitutional Constitutional: Fever. absent: Headache - EENT Eyes: absent: Change in Vision Ears: absent: Ear Discharge Nose/Mouth/Throat: absent: Sore Throat - Cardiovascular Cardiovascular: absent: Chest Pain, Dyspnea - Respiratory Respiratory: absent: Cough, Dyspnea, Hemoptysis - Gastrointestinal Gastrointestinal: absent: Diarrhea, Nausea, Vomiting - Genitourinary Genitourinary: absent: Difficulty Urinating, Dysuria - Musculoskeletal Musculoskeletal: Joint Swelling (and pain -RLE) - Integumentary Integumentary: Rash (erythema RLE) - Neurological Neurological: absent: Confusion, Weakness - Endocrine Endocrine: absent: Palpitations, Polydipsia, Polyphagia, Polyuria - Hematologic/Lymphatic Hematologic: absent: Easy Bleeding, Easy Bruising Past Patient History - Infectious Disease Hx of Infectious Diseases: None - Past Medical History & Family History Past Medical History?: Yes - Past Social History Smoking Status: Former Smoker - CARDIAC Hx Cardiac Disorders: Yes Hx Hypercholesterolemia: Yes Other/Comment: CABG with stent 2017; TIA - PULMONARY Hx Respiratory Disorders: No - NEUROLOGICAL Hx Neurological Disorder: No - HEENT Hx HEENT Problems: No - RENAL Hx Chronic Kidney Disease: No - ENDOCRINE/METABOLIC Hx Endocrine Disorders: Yes Hx Diabetes Mellitus Type 2: Yes - HEMATOLOGICAL/ONCOLOGICAL Hx Blood Disorders: No - INTEGUMENTARY Hx Dermatological Problems: No - MUSCULOSKELETAL/RHEUMATOLOGICAL Hx Musculoskeletal Disorders: Yes Hx Arthritis: Yes Hx Falls: No - GASTROINTESTINAL Hx Gastrointestinal Disorders: No - GENITOURINARY/GYNECOLOGICAL Hx Genitourinary Disorders: No - PSYCHIATRIC Hx Psychophysiologic Disorder: No - SURGICAL HISTORY Hx Cholecystectomy: Yes Hx Coronary Artery Bypass Graft: Yes Other/Comment: DVT with filter - ANESTHESIA Hx Anesthesia: Yes Hx Anesthesia Reactions: No Meds Allergies/Adverse Reactions: Allergies Allergy/AdvReac Type Severity Reaction Status Date / Time No Known Allergies Allergy Verified 04/19/18 09:45 Physical Exam - Constitutional Appears: No Acute Distress (unkempt) - Head Exam Head Exam: ATRAUMATIC, NORMOCEPHALIC - Eye Exam Eye Exam: EOMI, PERRL - ENT Exam ENT Exam: Mucous Membranes Moist - Respiratory Exam Respiratory Exam: Clear to Auscultation Bilateral, NORMAL BREATHING PATTERN - Cardiovascular Exam Cardiovascular Exam: REGULAR RHYTHM, +S1, +S2 - GI/Abdominal Exam GI & Abdominal Exam: Normal Bowel Sounds, Soft. absent: Tenderness - Extremities Exam Extremities exam: Positive for: full ROM, joint swelling (warmth, erythema and tenderness to palpation of dorso-medial area surrounding medial malleolus right lower extremity) - Back Exam Back exam: absent: CVA tenderness (L), CVA tenderness (R) - Neurological Exam Neurological exam: Alert, CN II-XII Intact (grossly intact), Oriented x3 - Psychiatric Exam Psychiatric exam: Normal Affect, Normal Mood - Skin Skin Exam: Dry, Warm Results - Vital Signs Recent Vital Signs: Last Vital Signs Temp 97.8 F 04/20/18 08:06 Pulse 67 04/20/18 08:06 Resp 19 04/20/18 08:06 BP 150/81 04/20/18 08:06 Pulse Ox 98 04/20/18 08:06 - Labs Result Diagrams: 04/20/18 05:45 04/20/18 05:45 Labs: Laboratory Results - last 24 hr 04/19/18 04/19/18 04/19/18 09:51 09:52 10:05 WBC 9.5 D RBC 4.78 Hgb 12.5 Hct 37.6 MCV 78.7 L MCH 26.1 L MCHC 33.1 RDW 15.9 H Plt Count 178 MPV 8.8 Neut % (Auto) 78.3 H Lymph % (Auto) 13.9 L [place] % (Auto) 6.9 Eos % (Auto) 0.4 Baso % (Auto) 0.5 Neut # (Auto) 7.5 H Lymph # (Auto) 1.3 [place] # (Auto) 0.7 Eos # (Auto) 0.0 Baso # (Auto) 0.0 ESR pO2 44 VBG pH 7.43 VBG pCO2 39 L VBG HCO3 25.7 VBG Total CO2 27.1 VBG O2 Sat (Calc) 86.5 H VBG Base Excess 1.5 VBG Potassium 4.5 Sodium 132.0 Chloride 100.0 Glucose 362 H Lactate 2.2 H FiO2 21.0 Blood Gas Comments Crit Value Called To Crit Value Called By Crit Value Read Back Blood Gas Notified Time Potassium Carbon Dioxide Anion Gap BUN Creatinine Est GFR ( Amer) Est GFR (Non-Af Amer) POC Glucose (mg/dL) 295 H Random Glucose Uric Acid Calcium Total Bilirubin AST ALT Alkaline Phosphatase Total Protein Albumin Globulin Albumin/Globulin Ratio Triglycerides Cholesterol LDL Cholesterol Direct HDL Cholesterol Procalcitonin Venous Blood Potassium 4.5 04/19/18 04/19/18 04/19/18 10:05 14:00 17:11 WBC RBC Hgb Hct MCV MCH MCHC RDW Plt Count MPV Neut % (Auto) Lymph % (Auto) [place] % (Auto) Eos % (Auto) Baso % (Auto) Neut # (Auto) Lymph # (Auto) [place] # (Auto) Eos # (Auto) Baso # (Auto) ESR pO2 61 H VBG pH 7.40 VBG pCO2 38 L VBG HCO3 24.0 VBG Total CO2 24.7 VBG O2 Sat (Calc) 96.7 H VBG Base Excess -1.1 L VBG Potassium 4.0 Sodium 135 132.0 Chloride 98 101.0 Glucose 419 H* Lactate 2.1 FiO2 21.0 Blood Gas Comments Vbg Crit Value Called To Jose maldonado Crit Value Called By 15 Crit Value Read Back Y Blood Gas Notified Time 1432 Potassium 4.4 Carbon Dioxide 27 Anion Gap 14 BUN 19 Creatinine 0.9 Est GFR ( Amer) > 60 Est GFR (Non-Af Amer) > 60 POC Glucose (mg/dL) 262 H Random Glucose 330 H Uric Acid 5.1 Calcium 9.0 Total Bilirubin 1.2 AST 30 ALT 31 Alkaline Phosphatase 117 Total Protein 7.2 Albumin 3.8 Globulin 3.4 Albumin/Globulin Ratio 1.1 Triglycerides Cholesterol LDL Cholesterol Direct HDL Cholesterol Procalcitonin Venous Blood Potassium 4.0 04/19/18 04/19/18 04/20/18 18:19 22:02 05:45 WBC 5.8 RBC 4.54 Hgb 11.8 L Hct 35.4 MCV 77.9 L MCH 26.1 L MCHC 33.4 RDW 16.0 H Plt Count 169 MPV Neut % (Auto) Lymph % (Auto) [place] % (Auto) Eos % (Auto) Baso % (Auto) Neut # (Auto) Lymph # (Auto) [place] # (Auto) Eos # (Auto) Baso # (Auto) ESR 57 H pO2 VBG pH VBG pCO2 VBG HCO3 VBG Total CO2 VBG O2 Sat (Calc) VBG Base Excess VBG Potassium Sodium Chloride Glucose Lactate FiO2 Blood Gas Comments Crit Value Called To Crit Value Called By Crit Value Read Back Blood Gas Notified Time Potassium Carbon Dioxide Anion Gap BUN Creatinine Est GFR ( Amer) Est GFR (Non-Af Amer) POC Glucose (mg/dL) 234 H Random Glucose Uric Acid Calcium Total Bilirubin AST ALT Alkaline Phosphatase Total Protein Albumin Globulin Albumin/Globulin Ratio Triglycerides Cholesterol LDL Cholesterol Direct HDL Cholesterol Procalcitonin 0.10 L Venous Blood Potassium 04/20/18 04/20/18 05:45 05:46 WBC RBC Hgb Hct MCV MCH MCHC RDW Plt Count MPV Neut % (Auto) Lymph % (Auto) [place] % (Auto) Eos % (Auto) Baso % (Auto) Neut # (Auto) Lymph # (Auto) [place] # (Auto) Eos # (Auto) Baso # (Auto) ESR pO2 VBG pH VBG pCO2 VBG HCO3 VBG Total CO2 VBG O2 Sat (Calc) VBG Base Excess VBG Potassium Sodium 138 Chloride 106 Glucose Lactate FiO2 Blood Gas Comments Crit Value Called To Crit Value Called By Crit Value Read Back Blood Gas Notified Time Potassium 4.0 Carbon Dioxide 23 Anion Gap 13 BUN 21 H Creatinine 0.9 Est GFR ( Amer) > 60 Est GFR (Non-Af Amer) > 60 POC Glucose (mg/dL) 167 H Random Glucose 183 H Uric Acid Calcium 8.5 Total Bilirubin 0.7 AST 18 ALT 27 Alkaline Phosphatase 95 Total Protein 6.3 Albumin 3.2 L Globulin 3.1 Albumin/Globulin Ratio 1.0 Triglycerides 168 H Cholesterol 127 LDL Cholesterol Direct 54 HDL Cholesterol 18 L Procalcitonin Venous Blood Potassium Assessment & Plan - Assessment and Plan (Free Text) Assessment: 72 yr old M admitted for right lower extremity cellulitis with PMHx including IDDM type 2, CAD s/p CABG 12/2017, bilateral LE DVT s/p IVC filter, HTN, HLD, TIA , unsteady gait at baseline-uses cane/walker to ambulate Plan: -admit to med/surg -resume home medications, adjust diabetes medications for better glycemic control -ID consult appreciated -bilateral lower extremity arterial and venous dopplers -f/u blood culture, CBC, BMP -prepared foods supervisor referral for heathier diet/better glycemic control -moderate carbohydrate diet -PT/OT - Date & Time Date: 04/20/18 Time: 10:50 <Connor Billings - Last Filed: 04/21/18 07:27> Results - Vital Signs Recent Vital Signs: Last Vital Signs Temp 98.1 F 04/21/18 01:00 Pulse 96 H 04/21/18 01:00 Resp 19 04/21/18 01:00 BP 159/86 H 04/21/18 01:00 Pulse Ox 98 04/21/18 01:00 - Labs Result Diagrams: 04/21/18 05:50 04/20/18 05:45 Labs: Laboratory Results - last 24 hr 04/20/18 04/20/18 04/20/18 05:45 05:45 11:31 WBC RBC Hgb Hct MCV MCH MCHC RDW Plt Count ESR 57 H POC Glucose (mg/dL) 203 H Hemoglobin A1c 10.7 H 04/20/18 04/20/18 04/21/18 15:52 21:27 05:42 WBC RBC Hgb Hct MCV MCH MCHC RDW Plt Count ESR POC Glucose (mg/dL) 195 H 268 H 267 H Hemoglobin A1c 04/21/18 05:50 WBC 4.5 L RBC 4.47 Hgb 11.8 L Hct 35.8 MCV 80.0 D MCH 26.3 L MCHC 32.9 L RDW 16.3 H Plt Count 146 ESR POC Glucose (mg/dL) Hemoglobin A1c Assessment & Plan - Assessment and Plan (Free Text) Plan: I was present during evaluation and discussed with Dr Holland re plans of care and tx. Connor Billings M.D.
[2018-04-20] MEDS: Insulin Regular 100 units/ml SC SCH ×4 (08:51→22:02)
--- NOTE | 2018-04-20 17:51 | US ---
PROCEDURE: Core HISTORY: Ankle swelling and pain, r/o DVT COMPARISON: None available. TECHNIQUE: Common femoral, superficial femoral, popliteal and posterior tibial veins were evaluated. Flow was assessed with color Doppler, compressibility, assessment of phasic flow and augmentation response. FINDINGS: COMMON FEMORAL VEIN: Unremarkable. SUPERFICIAL FEMORAL VEIN: Absence of compressibility, [place] in augmentation POPLITEAL VEIN: Acute thrombus identified POSTERIOR TIBIAL VEIN: Unremarkable. OTHER FINDINGS: None. IMPRESSION: Positive examination for acute DVT involving popliteal vein and superficial femoral vein. Common femoral vein is patent.
--- NOTE | 2018-04-20 18:00 | US ---
PROCEDURE: Duplex ultrasound of the bilateral lower extremity arteries. HISTORY: cellulitis COMPARISON: None available. TECHNIQUE: Grayscale and duplex Doppler evaluation of the bilateral common femoral, superficial femoral, popliteal, posterior tibial and dorsalis pedis arteries was performed.. FINDINGS: RIGHT LOWER EXTREMITY: RIGHT COMMON FEMORAL ARTERY: Widely patent. Maximal flow velocity of 98.6 cm/s. RIGHT SUPERFICIAL FEMORAL ARTERY: Elevated peak systolic velocities in the distal right SFA. Focal stenoses identified. Maximal flow velocity of 209.4 cm/s. RIGHT POPLITEAL ARTERY:Widely patent. Maximal flow velocity of 58.0 cm/s. RIGHT POSTERIOR TIBIAL ARTERY: Monophasic waveform Maximal flow velocity of 176.8 cm/s. RIGHT DORSALIS PEDIS ARTERY: Widely patent. Maximal flow velocity of 42.2 cm/s. LEFT LOWER EXTREMITY: LEFT COMMON FEMORAL ARTERY: Widely patent. Maximal flow velocity of 108 cm/s. LEFT SUPERFICIAL FEMORAL ARTERY: Atherosclerotic disease and turbulent blood flow identified distally. Maximal flow velocity of 141.2 cm/s. LEFT POPLITEAL ARTERY:Atherosclerotic disease, biphasic waveform Maximal flow velocity of 58.0 cm/s. LEFT POSTERIOR TIBIAL ARTERY: Monophasic waveform atherosclerotic disease. Maximal flow velocity of 176.8 cm/s. LEFT DORSALIS PEDIS ARTERY: Widely patent. Maximal flow velocity of 42.2 cm/s. OTHER FINDINGS: None. IMPRESSION: Right lower extremity arterial system: Focal stenoses involving the distal right SFA with elevated peak systolic velocity. More diffuse disease identified in the right posterior tibial artery. Left lower extremity: Atherosclerotic disease affecting blood flow at primarily at the posterior tibial artery common normal flow identified in the left dorsalis pedis artery.
[2018-04-20] MEDS: Enoxaparin 80 mg Syringe SC SCH (22:01)
[2018-04-21 06:30] LABS: HEMOGLOBIN 11.8 g/dL (12.0-18.0); MEAN CORPUSCULAR HEMOGLOBIN 26.3 pg (27.0-31.0); MEAN CORPUSCULAR HGB CONC 32.9 g/dL (33.0-37.0); RBC 4.47 Mil/uL (4.40-5.90); RED CELL DISTRIBUTION WIDTH 16.3 % (11.5-14.5); WHITE BLOOD COUNT 4.5 K/uL (4.8-10.8)
[2018-04-21 08:12] LABS: BLOOD UREA NITROGEN 17 mg/dl (9-20); CALCIUM 8.5 mg/dL (8.4-10.2); GFR AFRICAN-AMERICAN > 60; GFR NON-AFRICAN AMERICAN > 60
[2018-04-21] MEDS: Insulin Regular 100 units/ml SC SCH ×4 (09:07→22:00)
[2018-04-21] MEDS: Enoxaparin 80 mg Syringe SC SCH ×2 (09:08→21:17)
--- NOTE | 2018-04-21 11:51 | CP.PCM.CON ---
History of Present Illness - History of Present Illness History of Present Illness: 72 year year old male with a history of DM, HL, CAD s/p CABG, recurrent DVT with IV filter, presenting with right LE swelling and fever, found to have an acute RLE DVT. The patient reports to pain and swelling involving his right foot which gradual worsened up to his calf. This was associated with fever and fatigue. A venous duplex of the RLE revealed acute DVT involving the popliteal and superficial femoral vein. He is currently receiving therapeutic anticoagulation and reports his swelling and pain are improving. He notes that his first DVT was 6-7 years ago and was on an unknown blood thinner about 1 year. His 2nd DVT involved an IVC filter and abbreviated duration on anticoagulation which was held due to gingival bleeding. Past medical history: DM, HL, CAD s/p CABG, recurrent DVT s/p IVC filter Past surgical history: CABG, cholecystectomy Family history: Denies hematologic and oncologic problems Social history: Denies tobacco, alcohol, and illicit drug use. Allergies: NKDA Review of systems: All remaining review of systems including HEENT, cardiovascular, respiratory, gastrointestinal, genitourinary, musculoskeletal, dermatologic, neurologic, and psychiatric are negative unless mentioned in the HPI. Past Patient History - Infectious Disease Hx of Infectious Diseases: None - Past Medical History & Family History Past Medical History?: Yes - Past Social History Smoking Status: Former Smoker - CARDIAC Hx Cardiac Disorders: Yes Hx Hypercholesterolemia: Yes Other/Comment: CABG with stent 2016; TIA - PULMONARY Hx Respiratory Disorders: No - NEUROLOGICAL Hx Neurological Disorder: No - HEENT Hx HEENT Problems: No - RENAL Hx Chronic Kidney Disease: No - ENDOCRINE/METABOLIC Hx Endocrine Disorders: Yes Hx Diabetes Mellitus Type 2: Yes - HEMATOLOGICAL/ONCOLOGICAL Hx Blood Disorders: No - INTEGUMENTARY Hx Dermatological Problems: No - MUSCULOSKELETAL/RHEUMATOLOGICAL Hx Musculoskeletal Disorders: Yes Hx Arthritis: Yes Hx Falls: No - GASTROINTESTINAL Hx Gastrointestinal Disorders: No - GENITOURINARY/GYNECOLOGICAL Hx Genitourinary Disorders: No - PSYCHIATRIC Hx Psychophysiologic Disorder: No - SURGICAL HISTORY Hx Cholecystectomy: Yes Hx Coronary Artery Bypass Graft: Yes Other/Comment: DVT with filter - ANESTHESIA Hx Anesthesia: Yes Hx Anesthesia Reactions: No Meds Allergies/Adverse Reactions: Allergies Allergy/AdvReac Type Severity Reaction Status Date / Time No Known Allergies Allergy Verified 04/19/18 09:45 - Medications Medications: Current Medications Aspirin (Ecotrin) 81 mg PO DAILY JOSE A Last Admin: 04/21/18 09:07 Dose: 81 mg Atorvastatin Calcium (Lipitor) 40 mg PO HS [facility] Last Admin: 04/20/18 22:03 Dose: 40 mg Clopidogrel Bisulfate (Plavix) 75 mg PO DAILY [facility] Last Admin: 04/21/18 09:08 Dose: 75 mg Enoxaparin Sodium (Lovenox) 80 mg SC Q12 JOSE A PRN Reason: Protocol Last Admin: 04/21/18 09:08 Dose: 80 mg Vancomycin HCl 1 gm/ Sodium (Chloride) 250 mls @ 166.667 mls/hr IVPB Q12 [facility] PRN Reason: Protocol Last Admin: 04/21/18 10:23 Dose: 166.667 mls/hr Ceftriaxone Sodium 1 gm/ (Sodium Chloride) 100 mls @ 100 mls/hr IVPB DAILY [facility] PRN Reason: Protocol Last Admin: 04/21/18 09:06 Dose: 100 mls/hr Insulin Human Regular (Humulin R) 0 units SC ACHS [facility] PRN Reason: Protocol Last Admin: 04/21/18 09:07 Dose: 6 units Losartan Potassium (Cozaar) 100 mg PO DAILY [facility] Last Admin: 04/21/18 09:07 Dose: 100 mg Metformin HCl (Glucophage) 500 mg PO BIDWM [facility] Last Admin: 04/21/18 09:07 Dose: 500 mg Metoprolol Tartrate (Lopressor) 25 mg PO Q12 [facility] Last Admin: 04/21/18 09:08 Dose: 25 mg Physical Exam - Head Exam Head Exam: ATRAUMATIC - Eye Exam Eye Exam: Normal appearance - ENT Exam ENT Exam: Mucous Membranes Dry - Respiratory Exam Respiratory Exam: NORMAL BREATHING PATTERN - Cardiovascular Exam Cardiovascular Exam: +S1, +S2 - GI/Abdominal Exam GI & Abdominal Exam: Normal Bowel Sounds - Extremities Exam Extremities exam: Positive for: pedal edema - Neurological Exam Neurological exam: Oriented x3 - Psychiatric Exam Psychiatric exam: Normal Affect, Normal Mood - Skin Skin Exam: Warm Results - Vital Signs Recent Vital Signs: Last Vital Signs Temp 98.1 F 04/21/18 08:01 Pulse 77 04/21/18 09:08 Resp 20 04/21/18 08:01 BP 158/77 H 04/21/18 09:08 Pulse Ox 98 04/21/18 08:01 - Labs Result Diagrams: 04/21/18 05:50 04/21/18 07:49 Labs: Laboratory Results - last 24 hr 04/20/18 04/20/18 04/20/18 05:45 15:52 21:27 WBC RBC Hgb Hct MCV MCH MCHC RDW Plt Count Sodium Potassium Chloride Carbon Dioxide Anion Gap BUN Creatinine Est GFR ( Amer) Est GFR (Non-Af Amer) POC Glucose (mg/dL) 195 H 268 H Random Glucose Hemoglobin A1c 10.7 H Calcium 04/21/18 04/21/18 04/21/18 05:42 05:50 07:49 WBC 4.5 L RBC 4.47 Hgb 11.8 L Hct 35.8 MCV 80.0 D MCH 26.3 L MCHC 32.9 L RDW 16.3 H Plt Count 146 Sodium 136 Potassium 4.2 Chloride 106 Carbon Dioxide 22 Anion Gap 12 BUN 17 Creatinine 0.9 Est GFR ( Amer) > 60 Est GFR (Non-Af Amer) > 60 POC Glucose (mg/dL) 267 H Random Glucose 290 H Hemoglobin A1c Calcium 8.5 04/21/18 11:00 WBC RBC Hgb Hct MCV MCH MCHC RDW Plt Count Sodium Potassium Chloride Carbon Dioxide Anion Gap BUN Creatinine Est GFR ( Amer) Est GFR (Non-Af Amer) POC Glucose (mg/dL) 239 H Random Glucose Hemoglobin A1c Calcium Assessment & Plan (1) DVT (deep venous thrombosis) Assessment and Plan: recurrent DVT has IVC filter recommend therapeutic anticoagulation for life; pt agreeable to Xarelto can D/C lovenox in AM and start Xarelto 15mg BID x 21 days, followed by 20mg once daily team to discuss with cardiology if dual antiplatelet required in the setting of recent CABG with CAD Status: Acute (2) Anemia Assessment and Plan: will check retic count, b12, folate, ferritin, FOBT to further characterize Thank you for this interesting consult. Status: Acute
--- NOTE | 2018-04-21 16:10 | CP.PCM.PN ---
Subjective - Date & Time of Evaluation Date of Evaluation: 04/21/18 Time of Evaluation: 16:08 - Subjective Subjective: I D NOTE HAS DVT CELLULITIS IMPROVING SOMEWHAT NO CHANGE IN IV ANTIBIOTICS Objective - Vital Signs/Intake and Output Vital Signs (last 24 hours): Temp Pulse Resp BP Pulse Ox 98.1 F 77 20 158/77 H 98 04/21/18 08:01 04/21/18 09:08 04/21/18 08:01 04/21/18 09:08 04/21/18 08:01 - Medications Medications: Current Medications Atorvastatin Calcium (Lipitor) 40 mg PO HS [facility] Last Admin: 04/20/18 22:03 Dose: 40 mg Clopidogrel Bisulfate (Plavix) 75 mg PO DAILY [facility] Last Admin: 04/21/18 09:08 Dose: 75 mg Enoxaparin Sodium (Lovenox) 80 mg SC Q12 [facility] A PRN Reason: Protocol Last Admin: 04/21/18 09:08 Dose: 80 mg Vancomycin HCl 1 gm/ Sodium (Chloride) 250 mls @ 166.667 mls/hr IVPB Q12 [facility] A PRN Reason: Protocol Last Admin: 04/21/18 10:23 Dose: 166.667 mls/hr Ceftriaxone Sodium 1 gm/ (Sodium Chloride) 100 mls @ 100 mls/hr IVPB DAILY [facility] A PRN Reason: Protocol Last Admin: 04/21/18 09:06 Dose: 100 mls/hr Insulin Human Regular (Humulin R) 0 units SC ACHS [facility] PRN Reason: Protocol Last Admin: 04/21/18 12:46 Dose: 4 units Losartan Potassium (Cozaar) 100 mg PO DAILY [facility] Last Admin: 04/21/18 09:07 Dose: 100 mg Metformin HCl (Glucophage) 500 mg PO BIDWM [facility] Last Admin: 04/21/18 09:07 Dose: 500 mg Metoprolol Tartrate (Lopressor) 25 mg PO Q12 [facility] Last Admin: 04/21/18 09:08 Dose: 25 mg - Labs Labs: 04/21/18 05:50 04/21/18 07:49
[2018-04-22 06:45] LABS: HEMOGLOBIN 12.9 g/dL (12.0-18.0); MEAN CELL VOLUME 78.4 fl (80.0-94.0); MEAN CORPUSCULAR HEMOGLOBIN 26.2 pg (27.0-31.0); MEAN CORPUSCULAR HGB CONC 33.5 g/dL (33.0-37.0); RBC 4.93 Mil/uL (4.40-5.90); RED CELL DISTRIBUTION WIDTH 16.2 % (11.5-14.5); WHITE BLOOD COUNT 4.4 K/uL (4.8-10.8)
[2018-04-22] MEDS: Insulin Regular 100 units/ml SC SCH ×2 (06:50→11:55)
[2018-04-22 07:14] LABS: BLOOD UREA NITROGEN 13 mg/dl (9-20)
--- NOTE | 2018-04-22 07:14 | CP.PCM.PN ---
Subjective - Date & Time of Evaluation Date of Evaluation: 04/21/18 Time of Evaluation: 10:00 - Subjective Subjective: Patient seen and examined at bedside with Dr. Billings. Patient reports mild improvement in RLE pain and swelling. Denies fevers, chills, SOB, weakness. Patient was informed of ultrasound result of acute RLE DVT. Objective - Vital Signs/Intake and Output Vital Signs (last 24 hours): Temp Pulse Resp BP Pulse Ox 98.0 F 72 19 157/74 H 97 04/21/18 23:50 04/21/18 23:50 04/21/18 23:50 04/21/18 23:50 04/21/18 23:50 - Medications Medications: Current Medications Atorvastatin Calcium (Lipitor) 40 mg PO HS [facility] Last Admin: 04/21/18 21:15 Dose: 40 mg Clopidogrel Bisulfate (Plavix) 75 mg PO DAILY [facility] Last Admin: 04/21/18 09:08 Dose: 75 mg Enoxaparin Sodium (Lovenox) 80 mg SC Q12 [facility] A PRN Reason: Protocol Last Admin: 04/21/18 21:17 Dose: Not Given Vancomycin HCl 1 gm/ Sodium (Chloride) 250 mls @ 166.667 mls/hr IVPB Q12 [facility] A PRN Reason: Protocol Last Admin: 04/21/18 21:16 Dose: 166.667 mls/hr Ceftriaxone Sodium 1 gm/ (Sodium Chloride) 100 mls @ 100 mls/hr IVPB DAILY [facility] A PRN Reason: Protocol Last Admin: 04/21/18 09:06 Dose: 100 mls/hr Insulin Human Regular (Humulin R) 0 units SC ACHS [facility] A PRN Reason: Protocol Last Admin: 04/22/18 06:50 Dose: 2 units Losartan Potassium (Cozaar) 100 mg PO DAILY [facility] Last Admin: 04/21/18 09:07 Dose: 100 mg Metformin HCl (Glucophage) 500 mg PO BIDWM [facility] Last Admin: 04/21/18 16:49 Dose: 500 mg Metoprolol Tartrate (Lopressor) 25 mg PO Q12 [facility] Last Admin: 04/21/18 21:13 Dose: 25 mg - Labs Labs: 04/22/18 05:55 04/21/18 07:49 - Constitutional Appears: No Acute Distress - Head Exam Head Exam: NORMAL INSPECTION - Eye Exam Eye Exam: Normal appearance - ENT Exam ENT Exam: Mucous Membranes Moist - Respiratory Exam Respiratory Exam: NORMAL BREATHING PATTERN - Cardiovascular Exam Cardiovascular Exam: REGULAR RHYTHM - GI/Abdominal Exam GI & Abdominal Exam: Normal Bowel Sounds - Extremities Exam Additional comments: RLE-medial malleous area: erythema and swelling with mild improvement, mild tenderness to palpation - Neurological Exam Neurological Exam: Alert, Awake, Oriented x3 - Psychiatric Exam Psychiatric exam: Normal Affect, Normal Mood - Skin Skin Exam: Dry, Warm Assessment and Plan - Assessment and Plan (Free Text) Assessment: 72 yr old M admitted for right lower extremity cellulitis, with acute DVT of RLE (involving popliteal and superficial femoral vein) seen on US. PMHx includes IDDM type 2, CAD s/p CABG 12/2017, bilateral LE DVT s/p IVC filter, HTN , HLD, TIA, unsteady gait at baseline-uses cane/walker to ambulate. Plan: -continue IV antibiotics -glycemic control -heart healthy/moderate carbohydrate diet -PT/OT -ID consult appreciated, will follow recommendations -Heme/onc consult appreciated, will follow recommendations -Cardiology consult appreciated, will follow recommendations
[2018-04-22 07:31] LABS: FERRITIN 45.6 ng/Ml (17.9-464)
[2018-04-22 07:50] VITALS: BP 159/76; PULSE 67; RESP 20; TEMP 97.9; O2SAT 96
[2018-04-22] MEDS: Enoxaparin 80 mg Syringe SC SCH (08:28)
[2018-04-22 09:05] LABS: CALCIUM 9.1 mg/dL (8.4-10.2); GFR AFRICAN-AMERICAN > 60; GFR NON-AFRICAN AMERICAN > 60
[2018-04-22] MEDS ORDERED: CYANOCOBALAMIN 500 MCG TAB PO SCH (11:00)
[2018-04-22 16:34] LABS: FOLATE > 20.0 ng/mL
--- NOTE | 2018-04-22 20:10 | CP.PCM.DIS ---
Provider - Provider Date of Admission: 04/21/18 11:59 Attending physician: Connor Billings MD Primary care physician: Dr. Clarke Consults: Dr. Lucas, Dr. Iqbal, Dr. Wallace Time Spent in preparation of Discharge (in minutes): 30 Diagnosis - Discharge Diagnosis (1) Cellulitis Status: Acute Priority: Low (2) DVT (deep venous thrombosis) Status: Acute Priority: Medium (3) CAD (coronary artery disease) Status: Chronic Priority: Medium (4) Diabetes Status: Chronic Priority: Medium (5) Hyperlipidemia Status: Chronic Priority: Low (6) HTN (hypertension) Status: Chronic Priority: Low Hospital Course - Lab Results Lab Results: Micro Results 04/19/18 10:05 Blood-Venous Blood Culture - Preliminary NO GROWTH AFTER 3 DAYS Most Recent Lab Values WBC 4.4 K/uL (4.8-10.8) L 04/22/18 05:55 RBC 4.93 Mil/uL (4.40-5.90) 04/22/18 05:55 Hgb 12.9 g/dL (12.0-18.0) 04/22/18 05:55 Hct 38.6 % (35.0-51.0) 04/22/18 05:55 MCV 78.4 fl (80.0-94.0) L 04/22/18 05:55 MCH 26.2 pg (27.0-31.0) L 04/22/18 05:55 MCHC 33.5 g/dL (33.0-37.0) 04/22/18 05:55 RDW 16.2 % (11.5-14.5) H 04/22/18 05:55 Plt Count 200 K/uL (130-400) 04/22/18 05:55 MPV 8.8 fl (7.2-11.7) 04/19/18 10:05 Neut % (Auto) 78.3 % (50.0-75.0) H 04/19/18 10:05 Lymph % (Auto) 13.9 % (20.0-40.0) L 04/19/18 10:05 [place] % (Auto) 6.9 % (0.0-10.0) 04/19/18 10:05 Eos % (Auto) 0.4 % (0.0-4.0) 04/19/18 10:05 Baso % (Auto) 0.5 % (0.0-2.0) 04/19/18 10:05 Neut # (Auto) 7.5 K/uL (1.8-7.0) H 04/19/18 10:05 Lymph # (Auto) 1.3 K/uL (1.0-4.3) 04/19/18 10:05 [place] # (Auto) 0.7 K/uL (0.0-0.8) 04/19/18 10:05 Eos # (Auto) 0.0 K/uL (0.0-0.7) 04/19/18 10:05 Baso # (Auto) 0.0 K/uL (0.0-0.2) 04/19/18 10:05 ESR 57 mm/hr (0-20) H 04/20/18 05:45 Retic Count 1.1 % (0.5-1.5) 04/22/18 05:55 pO2 61 mm/Hg (30-55) H 04/19/18 14:00 VBG pH 7.40 (7.32-7.43) 04/19/18 14:00 VBG pCO2 38 mmHg (40-60) L 04/19/18 14:00 VBG HCO3 24.0 mmol/L 04/19/18 14:00 VBG Total CO2 24.7 mmol/L (22-28) 04/19/18 14:00 VBG O2 Sat (Calc) 96.7 % (40-65) H 04/19/18 14:00 VBG Base Excess -1.1 mmol/L (0.0-2.0) L 04/19/18 14:00 VBG Potassium 4.0 mmol/L (3.6-5.2) 04/19/18 14:00 Sodium 132.0 mmol/L (132-148) 04/19/18 14:00 Chloride 101.0 mmol/L (98-107) 04/19/18 14:00 Glucose 419 mg/dL (75-110) H* 04/19/18 14:00 Lactate 2.1 mmol/L (0.7-2.1) 04/19/18 14:00 FiO2 21.0 % 04/19/18 14:00 Blood Gas Comments Vbg 04/19/18 14:00 Crit Value Called To Jose malodnado 04/19/18 14:00 Crit Value Called By 15 04/19/18 14:00 Crit Value Read Back Y 04/19/18 14:00 Blood Gas Notified Time 1432 04/19/18 14:00 Sodium 140 mmol/l (132-148) 04/22/18 05:55 Potassium 4.0 MMOL/L (3.6-5.0) 04/22/18 05:55 Chloride 108 mmol/L (98-107) H 04/22/18 05:55 Carbon Dioxide 20 mmol/L (22-30) L 04/22/18 05:55 Anion Gap 16 (10-20) 04/22/18 05:55 BUN 13 mg/dl (9-20) 04/22/18 05:55 Creatinine 0.8 mg/dl (0.8-1.5) 04/22/18 05:55 Est GFR ( Amer) > 60 04/22/18 05:55 Est GFR (Non-Af Amer) > 60 04/22/18 05:55 POC Glucose (mg/dL) 217 mg/dL (65-110) H 04/22/18 10:48 Random Glucose 193 mg/dL (75-110) H 04/22/18 05:55 Hemoglobin A1c 10.7 % (4.2-6.5) H 04/20/18 05:45 Uric Acid 5.1 mg/Dl (3.5-8.5) 04/19/18 10:05 Calcium 9.1 mg/dL (8.4-10.2) 04/22/18 05:55 Ferritin 45.6 ng/Ml (17.9-464) 04/22/18 05:55 Total Bilirubin 0.7 mg/dl (0.2-1.3) 04/20/18 05:45 AST 18 U/L (17-59) 04/20/18 05:45 ALT 27 U/L (21-72) 04/20/18 05:45 Alkaline Phosphatase 95 U/L (38-126) 04/20/18 05:45 Total Protein 6.3 G/DL (6.3-8.2) 04/20/18 05:45 Albumin 3.2 g/dL (3.5-5.0) L 04/20/18 05:45 Globulin 3.1 gm/dL (2.2-3.9) 04/20/18 05:45 Albumin/Globulin Ratio 1.0 (1.0-2.1) 04/20/18 05:45 Triglycerides 168 mg/DL (0-149) H 04/20/18 05:45 Cholesterol 127 mg/dL (0-199) 04/20/18 05:45 LDL Cholesterol Direct 54 mg/dL (0-129) 04/20/18 05:45 HDL Cholesterol 18 MG/DL (30-70) L 04/20/18 05:45 Vitamin B12 < 159 pg/mL (239-931) L 04/22/18 05:55 Folate > 20.0 ng/mL 04/22/18 05:55 Procalcitonin 0.10 NG/ML (0.19-0.49) L 04/19/18 18:19 Venous Blood Potassium 4.0 mmol/L (3.6-5.2) 04/19/18 14:00 Vancomycin Trough 11.6 ug/mL (5.0-10.0) H 04/22/18 07:30 - Hospital Course Hospital Course: 72 yr old M admitted for right lower extremity cellulitis, with acute DVT of RLE (involving popliteal and superficial femoral vein) seen on US. Patients was evaluated by heme/onc and cardiology. Symptoms improved s/p treatment with IV antibiotics and was started on Xarelto. 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 Follow up with hematology oncology as outpatient. - Date & Time of H&P Date of H&P: 04/20/18 Time of H&P: 08:30 Discharge Exam - Head Exam Head Exam: NORMAL INSPECTION - Eye Exam Eye Exam: EOMI - ENT Exam ENT Exam: Mucous Membranes Moist - Respiratory Exam Respiratory Exam: NORMAL BREATHING PATTERN - Cardiovascular Exam Cardiovascular Exam: REGULAR RHYTHM - GI/Abdominal Exam GI & Abdominal Exam: Normal Bowel Sounds - Extremities Exam Extremities exam: full ROM Additional comments: right foot no erythema, swelling or tenderness in area surrounding medial malleolus - Neurological Exam Neurological exam: Alert, CN II-XII Intact (grossly intact), Oriented x3 - Psychiatric Exam Psychiatric exam: Normal Affect, Normal Mood - Skin Skin Exam: Dry, Warm Discharge Plan - Discharge Medications Prescriptions: Losartan [Cozaar] 100 mg PO DAILY #30 tab MetFORMIN [glucoPHAGE] 1,000 mg PO BIDWM #60 tab Rivaroxaban [Xarelto] 15 mg PO BIDWM #42 tab SITagliptin [Januvia] 100 mg PO DAILY #30 tab - Follow Up Plan Condition: FAIR Disposition: HOME/ ROUTINE Instructions: Deep Vein Thrombosis (Blood Clots in the Legs) (DC), Cellulitis ( Skin Infection), Adult (DC), Diabetes and Diet Additional Instructions: follow up with primary MD 1 week Referrals: Trevin Wallace MD [Staff Provider] - Perez Iqbal MD [Staff Provider] -
== END 2018-04-22 15:40 | disposition home or self-care (01) | DRG 300 ==
LOC: H.ER 09:26 → H.ERHOLD 14:15 → H.MEDSURG1 16:56 → OBSVTOIN 04-21 11:59
PROVIDERS: ADMIT Family Medicine; ATTEND Family Medicine
DX: I82.431 Acute embolism and thrombosis of right popliteal vein (principal); L03.115 Cellulitis of right lower limb; I82.411 Acute embolism and thrombosis of right femoral vein; I25.10 Atherosclerotic heart disease of native coronary artery without angina pectoris; Z95.1 Presence of aortocoronary bypass graft; E11.9 Type 2 diabetes mellitus without complications; Z79.4 Long term (current) use of insulin; I10 Essential (primary) hypertension; E78.5 Hyperlipidemia, unspecified; Z86.73 Personal history of transient ischemic attack (TIA), and cerebral infarction without residual deficits; Z95.5 Presence of coronary angioplasty implant and graft; E78.00 Pure hypercholesterolemia, unspecified; I87.8 Other specified disorders of veins